=== PATIENT | female | born 1990 | race American Indian/Alaskan Native ===

== ENCOUNTER 2022-08-13 05:00 | Emergency (ER) | payer SELFPAY | END 2022-08-13 06:00 | disposition left against medical advice (07) | LOC: ED 05:00 | DX: S05.91XA Unspecified injury of right eye and orbit, initial encounter (principal); Z53.21 Procedure and treatment not carried out due to patient leaving prior to being seen by health care provider; X58.XXXA Exposure to other specified factors, initial encounter; Y93.89 Activity, other specified; Y92.89 Other specified places as the place of occurrence of the external cause; Y99.8 Other external cause status ==